=== PATIENT | male | born 1955 | race Two or more races ===

== ENCOUNTER 2019-06-16 08:22 | Day surgery (SDC) | payer MEDICARE, BC ==
[2019-06-16] MEDS ORDERED: FURO80TA87 MT (09:42)
[2019-06-16] MEDS ORDERED: ASPI-1158 MT (09:42)
[2019-06-16] MEDS ORDERED: METO2.5T14 MT (09:42)
[2019-06-16] MEDS ORDERED: LISI40TA4 MT (09:42)
[2019-06-16] MEDS ORDERED: POTA20TA12 MT (09:42)
[2019-06-16] MEDS ORDERED: HEPARIN SODIUM 1,000 UNIT/1ML VIAL IV ONE (11:19)
[2019-06-16] MEDS ORDERED: NICARDIPINE 100MCG/ML 10ML VIAL (CATH LAB) IV ONE (11:19)
[2019-06-16] MEDS ORDERED: NITROGLYCERIN 50MCG/ML 10ML VIAL (CATH LAB) IV ONE (11:19)
[2019-06-16] MEDS ORDERED: FENTANYL CITRATE/PF 50MCG/ML 2ML VIAL ONE (11:27)
[2019-06-16] MEDS ORDERED: MIDAZOLAM HCL 2 MG/2 ML VIAL ONE (11:27)
[2019-06-16] MEDS ORDERED: IODIXANOL 320MG/ML 100 ML BOTTLE IV ONE (11:27)
== END 2019-06-16 16:00 | disposition home or self-care (01) ==
LOC: CCL 08:22
PROVIDERS: ATTEND Specialist
DX: R07.9 Chest pain, unspecified (principal); I25.119 Atherosclerotic heart disease of native coronary artery with unspecified angina pectoris; E78.5 Hyperlipidemia, unspecified; E87.6 Hypokalemia; I11.0 Hypertensive heart disease with heart failure; I50.32 Chronic diastolic (congestive) heart failure; G47.33 Obstructive sleep apnea (adult) (pediatric); I21.4 Non-ST elevation (NSTEMI) myocardial infarction; I49.3 Ventricular premature depolarization; B18.2 Chronic viral hepatitis C; Z88.0 Allergy status to penicillin; Z88.8 Allergy status to other drugs, medicaments and biological substances; Z79.899 Other long term (current) drug therapy; Z79.82 Long term (current) use of aspirin; Z86.19 Personal history of other infectious and parasitic diseases; Z82.49 Family history of ischemic heart disease and other diseases of the circulatory system
CPT/HCPCS: 93458; C1769; C1893; J1644; J2250; J3010; J3490; Q9967; 99152; G0500